=== PATIENT | male | born 1975 | race Caucasian/White ===

== ENCOUNTER 2020-06-06 18:52 | Emergency (ER) | payer OTHER ==
[~2020-06-06] VITALS: Ht 175.3 cm; Wt 131.5 kg
== END 2020-06-06 20:44 | disposition home or self-care (01) ==
LOC: ER 18:52
DX: H60.8X1 Other otitis externa, right ear (principal)

== ENCOUNTER 2021-02-03 03:56 | Emergency (ER) | payer OTHER ==
[~2021-02-03] VITALS: Ht 175.3 cm; Wt 133.8 kg
== END 2021-02-03 09:58 | disposition home or self-care (01) ==
LOC: ER 03:56
DX: N20.1 Calculus of ureter (principal); R10.32 Left lower quadrant pain

== ENCOUNTER 2022-05-16 22:49 | Emergency (ER) | payer OTHER ==
[~2022-05-16] VITALS: Ht 177.8 cm; Wt 136.1 kg
[2022-05-17] MEDS ORDERED: METFORMIN HCL1000 M2 PO (05:50)
== END 2022-05-17 05:59 ==
LOC: ER 22:49
DX: R73.9 Hyperglycemia, unspecified (principal)